=== PATIENT | male | born 1970 | race Caucasian/White ===

== ENCOUNTER 2024-10-04 12:45 | Emergency (ER) | payer OTHER ==
[~2024-10-04] VITALS: Ht 165.1 cm; Wt 69.4 kg
[2024-10-04 12:54] VITALS: BP 121/74; TEMP 98.8
[2024-10-04] MEDS ORDERED: TDAP [DIPH/PERTUSSIS/TET] 0.5 ML VIAL IM ONE (13:08)
[2024-10-04] MEDS ORDERED: AMOX-430 PO (13:09)
[2024-10-04] MEDS: TDAP [DIPH/PERTUSSIS/TET] 0.5 ML VIAL IM ONE (13:13)
[2024-10-04 13:22] VITALS: O2SAT 97
== END 2024-10-04 13:25 | disposition home or self-care (01) ==
LOC: ER 12:50
DX: S61.250A Open bite of right index finger without damage to nail, initial encounter (principal); W55.01XA Bitten by cat, initial encounter; Y93.89 Activity, other specified; Y92.89 Other specified places as the place of occurrence of the external cause; Y99.8 Other external cause status
CPT/HCPCS: 90715

== ENCOUNTER 2024-11-23 18:26 | Emergency (ER) | payer OTHER ==
[~2024-11-23] VITALS: Ht 165.1 cm; Wt 69.9 kg
[~2024-11-23 18:26] MED LIST: AMOX-430 PO
[2024-11-23 18:42] VITALS: BP 106/68; TEMP 99.7
[2024-11-23] MEDS ORDERED: FEXO180T94 PO (19:58)
[2024-11-23] MEDS ORDERED: GUAI1TBM19 PO (19:58)
[2024-11-23] MEDS ORDERED: IBUP-1953 PO (19:58)
[2024-11-23 20:02] VITALS: O2SAT 95
== END 2024-11-23 20:03 | disposition home or self-care (01) ==
LOC: ER 18:31
DX: J06.9 Acute upper respiratory infection, unspecified (principal); B97.89 Other viral agents as the cause of diseases classified elsewhere; R05.9 Cough, unspecified; M79.10 Myalgia, unspecified site; Z79.899 Other long term (current) drug therapy